=== PATIENT | female | born 1985 | race Caucasian/White ===

== ENCOUNTER → 2017-12-05 | Outpatient (CLI) | payer OTHER ==
[~2017-12-05] MED LIST: IBUP-1222 PO; No meds per pt.; OXYC-307 PO
== END ==
LOC: STAR 15:00
PROVIDERS: ATTEND Specialist
DX: Z02.9 Encounter for administrative examinations, unspecified (principal)

== ENCOUNTER 2017-12-10 09:59 | Inpatient (IN) | payer OTHER ==
[2017-12-05 15:18] VITALS: BP 108/69
[~2017-12-10] VITALS: Ht 165.1 cm; Wt 49.3 kg
[~2017-12-10 09:59] MED LIST changes: -IBUP-1222 PO; -OXYC-307 PO
[2017-12-10] MEDS ORDERED: LACTATED RINGERS 1,000 ML IV SCH (10:24)
[2017-12-10] MEDS ORDERED: LIDOCAINE 1%, 2ML SQ PRN (10:30)
[2017-12-10 10:34] LABS: HCG UR SG 1.024 (1.003-1.030)
[2017-12-10] MEDS ORDERED: PROPOFOL 10 MG/ML, 20ML ONE (11:47)
[2017-12-10] MEDS ORDERED: MIDAZOLAM 1 MG/ML, 2ML ONE (11:47)
[2017-12-10] MEDS ORDERED: LIDOCAINE-MPF 2% ,5ML ONE (11:47)
[2017-12-10] MEDS ORDERED: ROCURONIUM 10 MG/ML,10ML ONE (11:47)
[2017-12-10] MEDS ORDERED: CEFAZOLIN 1,000 MG ONE (11:59)
[2017-12-10] MEDS ORDERED: INDIGO CARMINE 0.8%, 5ML ONE (12:05)
[2017-12-10] MEDS ORDERED: FENTANYL PF 100 MCG/2ML ONE (12:24)
[2017-12-10] MEDS ORDERED: DEXAMETHASONE 4 MG/ML, 1ML ONE ×2 (12:58)
[2017-12-10] MEDS ORDERED: ONDANSETRON 2MG/ML, 2ML ONE (12:59)
[2017-12-10] MEDS ORDERED: GLYCOPYRROLATE 0.2MG/1ML, 5ML ONE (13:30)
[2017-12-10] MEDS ORDERED: NEOSTIGMINE 1 MG/ML, 10ML ONE (13:30)
[2017-12-10] MEDS ORDERED: cloniDINE/PF 100 MCG/ML, 10 ML ONE (13:31)
[2017-12-10] MEDS: MEPERIDINE/PF 25MG/0.5ML IVPush PRN ×2 (14:05→14:45)
[2017-12-10] MEDS ORDERED: ACETAMINOPHEN 650 MG/20.3 ML UDC ONE (14:07)
[2017-12-10] MEDS ORDERED: OXYcodone 5 MG/5 ML ORAL.SOL UDC ONE (14:07)
[2017-12-10] MEDS ORDERED: MEPERIDINE/PF 50 MG/ML ONE (14:07)
[2017-12-10] MEDS: OXYcodone 5 MG/5 ML ORAL.SOL UDC PO PRN ×3 (14:10→22:58)
[2017-12-10] MEDS ORDERED: KETOROLAC 30 MG/1 ML ONE (14:17)
[2017-12-10] MEDS ORDERED: ACETAMINOPHEN 325 MG TABLET PO PRN (14:30)
[2017-12-10] MEDS ORDERED: KETOROLAC 30 MG/1 ML IVPush ONE (14:30)
[2017-12-10] MEDS ORDERED: KETOROLAC 30 MG/1 ML IV PRN (14:30)
[2017-12-10] MEDS ORDERED: morphine SULFATE 10 MG/ML, 1ML IV PRN (14:30)
[2017-12-10] MEDS ORDERED: ONDANSETRON 2MG/ML, 2ML IVPush PRN (14:30)
[2017-12-10] MEDS ORDERED: morphine SULFATE 10 MG/ML, 1ML ONE (14:53)
[2017-12-10 15:40] VITALS: BP 90/52
[2017-12-10] MEDS ORDERED: MEPERIDINE/PF 100 MG/ML IM PRN (16:00)
[2017-12-10] MEDS ORDERED: ONDANSETRON 2MG/ML, 2ML IV PRN (16:00)
[2017-12-10] MEDS ORDERED: SODIUM CHLORIDE 0.9%, 500ML IVBOLUS ONE (19:00)
[2017-12-10 19:33] VITALS: BP 91/54
[2017-12-10] MEDS ORDERED: CEFAZOLIN PMX 1GM/50ML 50 ML IVPB SCH (20:00)
[2017-12-10] MEDS: KETOROLAC 30 MG/1 ML IV SCH (20:07)
[2017-12-10] MEDS: D5%-LACTATED RINGERS 1,000 ML IV SCH ×2 (22:47→22:58)
[2017-12-11 00:21] VITALS: BP 91/51
[2017-12-11] MEDS: KETOROLAC 30 MG/1 ML IV SCH ×2 (01:57→08:52)
[2017-12-11 03:41] VITALS: BP 90/52
[2017-12-11] MEDS: OXYcodone 5 MG/5 ML ORAL.SOL UDC PO PRN ×2 (06:12→13:01)
[2017-12-11 06:29] VITALS: BP 88/51
[2017-12-11] MEDS: D5%-LACTATED RINGERS 1,000 ML IV SCH (08:00)
[2017-12-11] MEDS ORDERED: KETOROLAC 30 MG/1 ML ONE (08:47)
[2017-12-11] MEDS ORDERED: IBUP-1222 PO (11:05)
[2017-12-11] MEDS ORDERED: OXYC-307 PO (11:25)
[2017-12-11 12:31] VITALS: BP 92/56
[2017-12-11] MEDS ORDERED: IBUPROFEN 600 MG TABLET PO SCH ×2 (14:00)
[2017-12-11 14:44] VITALS: BP 95/59
== END 2017-12-11 15:21 | disposition home or self-care (01) | DRG 743 ==
LOC: OUT 09:59 → 4NOR 15:33 → OUT 15:38 → DCLOUNGE 12-11 15:09
PROVIDERS: ADMIT Specialist; ATTEND Specialist
PROC: 0UB64ZZ Excision of Left Fallopian Tube, Percutaneous Endoscopic Approach (ICD-10-PCS; principal; 2017-12-11)
DX: N83.8 Other noninflammatory disorders of ovary, fallopian tube and broad ligament (principal); N80.1 Endometriosis of ovary; N83.202 Unspecified ovarian cyst, left side; N80.3 Endometriosis of pelvic peritoneum; N94.10 Unspecified dyspareunia; Z88.5 Allergy status to narcotic agent
CPT/HCPCS: 36415; 81025; 85014; 85018; 88304; J0690; J1100; J1885; J2175; J2250; J2405; J2704; J2710; J3010; J3490; J0735; J2270; J7040; J7120; J7121

== ENCOUNTER → 2018-01-30 | Outpatient (CLI) | payer OTHER ==
[~2018-01-30] MED LIST changes: +IBUP-1222 PO; +OMNIPAQUE 300 MG/ML, 10ML VIAL ONE; +OXYC-307 PO
== END | disposition home or self-care (01) ==
LOC: RAD 08:01
PROVIDERS: ATTEND Specialist
DX: N97.9 Female infertility, unspecified (principal)
CPT/HCPCS: 74740; Q9967